=== PATIENT | male | born 1960 | race Caucasian/White ===

== ENCOUNTER 2016-07-18 10:21 | Emergency (ER) | payer OTHER ==
[2016-07-18 10:25] VITALS: BP 157/96
--- NOTE | 2016-07-18 11:03 | ED.ADGEN ---
Past History Past Medical History: High Cholesterol, Hypertension Past Surgical History: No Surgical History Smoking: Non-smoker Alcohol Use: Occasionally Drug Use: None Adult General Chief Complaint Chief Complaint fall, face pain HPI HPI Patient is a 56 year old male who presents with injuries from a fall. Pt had a mechanical trip and fall while at work. Occurred just prior to arrival, no LOC , takes no blood thinners. Starting to develop occipital headache, denies neck or back pain. abrasion to the left hand, laceration left face just distal to the nose. Review of Systems Review of Systems Constitutional: Denies fever or chills [] Eyes: Denies change in visual acuity, redness, or eye pain [] HENT: Denies nasal congestion or sore throat [] Respiratory: Denies cough or shortness of breath [] Cardiovascular: denies chest pain GI: Denies abdominal pain, nausea, vomiting, bloody stools or diarrhea [] : Denies dysuria or hematuria [] Musculoskeletal: Denies back pain or joint pain [] Integument: Denies rash Neurologic: reports headache, denies focal weakness or sensory changes [] Current Medications Current Medications Current Medications Medications (Trade) Dose Ordered Sig/Tayla Start Time Stop Time Status Last Admin Dose Admin Acetaminophen (Tylenol) 1,000 mg 1X ONCE 07/18/16 11:25 07/18/16 11:26 DC 07/18/16 11:09 1,000 MG Diphtheria/ Tetanus/Acell Pertussis (Boostrix) 0.5 ml ONCE ONCE 07/18/16 11:25 07/18/16 11:26 DC 07/18/16 11:09 0.5 ML Lidocaine/ Epinephrine (Xylocaine 1%-Epi 1:100,000) 20 ml 1X ONCE 07/18/16 11:25 07/18/16 11:26 DC Allergies Allergies Allergies Coded Allergies Type Severity Reaction Last Updated Verified No Known Drug Allergies 03/31/13 No Physical Exam Physical Exam Constitutional: Well developed, well nourished, no acute distress, non-toxic appearance. [] HENT: Normocephalic, 2 cm laceration to just above the lip/distal to the nose, moderate hemostasis, no mastoid tenderness, chin abrasion, no trismus, bilateral external ears normal, oropharynx moist, no oral exudates, nose normal. [] Eyes: PERRLA, EOMI, conjunctiva normal, no discharge. [] Neck: Normal range of motion, no tenderness, supple, no stridor. [] Cardiovascular:Heart rate regular rhythm, systolic heart murmur [] Lungs & Thorax: Bilateral breath sounds clear to auscultation , no wheeze or crackles Abdomen: soft, no tenderness, no masses Skin: Warm, dry, no erythema, no rash. [] Back: No midline stepoff or tenderness, no CVA tenderness. [] Extremities: No tenderness, no cyanosis, no clubbing, ROM intact, no edema. [] Neurologic: Alert and oriented X 3, normal motor function, normal sensory function, no focal deficits noted. [] Psychologic: Affect normal, judgement normal, mood normal. [] Current Patient Data Vital Signs Vital Signs Date Time Temp Pulse Resp B/P Pulse Ox O2 Delivery O2 Flow Rate FiO2 07/18/16 10:25 98.1 108 18 100 Room Air EKG EKG [] Radiology/Procedures Radiology/Procedures CT head and face: CT of the head without contrast, 07/18/2016: History: Fall, head injury the ventricles are within normal limits in size. There is no shift of the midline structures. There is no evidence of acute intracranial hemorrhage or mass effect. The bone windows show no evidence of a fracture. IMPRESSION: No acute intracranial abnormality is detected. CT of the facial bones without contrast, 07/19/2011: Noncontrast scans were obtained with multiplanar reconstructions produced. No acute fracture is identified. There is mucosal thickening in the maxillary sinuses, more so on the right, presumably on an inflammatory basis. The orbital contents are unremarkable. The patient is edentulous. IMPRESSION: No acute bony abnormality is detected. Indication: face laceration Procedure: The patient was placed in the appropriate position and anesthesia around the lidocaine with 1% epi . The area was then [facility]. The laceration was 3 simple interrrupted sutures using 6-0 prolene. Total repaired wound length: 2. cm. Other Items: none The patient tolerated the procedure well. Complications: [COMPLICATIONS]. Course & Med Decision Making Course & Med Decision Making Pertinent Labs and Imaging studies reviewed. (See chart for details) tylenol po and tdap given. CT head and face ordered Final Impression Final Impression facial laceration closed head injury[] Problems: Dragon Disclaimer Dragon Disclaimer This electronic medical record was generated, in whole or in part, using a voice recognition dictation system. SONYA HOLLINGSWORTH MD Jul 18, 2016 11:03
[2016-07-18] MEDS ORDERED: LIDOCAINE 1%/EPI 1:100,000 20 ML VIAL. IJ ONE (11:25)
[2016-07-18] MEDS ORDERED: ACETAMINOPHEN 500 MG TABLET PO ONE (11:25)
[2016-07-18] MEDS ORDERED: DIPHTH,PERTUSS(ACELL),TET TOX 0.5 ML DISP.SYRIN. VAX IM ONE (11:25)
--- NOTE | 2016-07-18 11:32 | RAD ---
CT of the head without contrast, 07/18/2016: History: Fall, head injury the ventricles are within normal limits in size. There is no shift of the midline structures. There is no evidence of acute intracranial hemorrhage or mass effect. The bone windows show no evidence of a fracture. IMPRESSION: No acute intracranial abnormality is detected. CT of the facial bones without contrast, 07/19/2011: Noncontrast scans were obtained with multiplanar reconstructions produced. No acute fracture is identified. There is mucosal thickening in the maxillary sinuses, more so on the right, presumably on an inflammatory basis. The orbital contents are unremarkable. The patient is edentulous. IMPRESSION: No acute bony abnormality is detected. PQRS Compliance Statement: One or more of the following individualized dose reduction techniques were utilized for this examination: 1. Automated exposure control 2. Adjustment of the mA and/or kV according to patient size 3. Use of iterative reconstruction technique
== END 2016-07-18 12:06 | disposition home or self-care (01) ==
LOC: ER 10:21
DX: S09.8XXA Other specified injuries of head, initial encounter (principal); S01.81XA Laceration without foreign body of other part of head, initial encounter; S60.512A Abrasion of left hand, initial encounter; I10 Essential (primary) hypertension; E78.00 Pure hypercholesterolemia, unspecified; W01.0XXA Fall on same level from slipping, tripping and stumbling without subsequent striking against object, initial encounter; Y93.89 Activity, other specified; Y99.8 Other external cause status; Y92.89 Other specified places as the place of occurrence of the external cause
CPT/HCPCS: 12011; 70450; 70486; 90471; 90715; 99284-25

== ENCOUNTER 2016-07-23 14:38 | Emergency (ER) | payer OTHER ==
[~2016-07-23] VITALS: Ht 175.3 cm; Wt 106.6 kg
[2016-07-23 14:55] VITALS: BP 143/90
--- NOTE | 2016-07-23 15:06 | ED.ADGEN ---
Past History Past Medical History: High Cholesterol, Hypertension Past Surgical History: No Surgical History Smoking: Non-smoker Alcohol Use: Occasionally Drug Use: None Adult General Chief Complaint Chief Complaint suture removal HPI HPI Patient is a 56 year old male who presents to suture removal. Laceration to face 5 days ago, no injuries. Healing well Review of Systems Review of Systems Constitutional: Denies fever or chills [] Allergies Allergies Allergies Coded Allergies Type Severity Reaction Last Updated Verified No Known Drug Allergies 03/31/13 No Physical Exam Physical Exam Constitutional: Well developed, well nourished, no acute distress, non-toxic appearance. [] Face: well healing laceration just distal to the left nose, no surrounding erythema, + scabs. EKG EKG [] Radiology/Procedures Radiology/Procedures [] Course & Med Decision Making Course & Med Decision Making Pertinent Labs and Imaging studies reviewed. (See chart for details) sutures removed by me. tolerated well. Care instructions given Final Impression Final Impression face laceration[] Problems: Dragon Disclaimer Dragon Disclaimer This electronic medical record was generated, in whole or in part, using a voice recognition dictation system. SONYA HOLLINGSWORTH MD Jul 23, 2016 15:06
== END 2016-07-23 15:20 | disposition home or self-care (01) ==
LOC: ER 14:38
DX: S01.81XD Laceration without foreign body of other part of head, subsequent encounter (principal); I10 Essential (primary) hypertension; E78.00 Pure hypercholesterolemia, unspecified; X58.XXXD Exposure to other specified factors, subsequent encounter; Y99.8 Other external cause status; Y92.89 Other specified places as the place of occurrence of the external cause
CPT/HCPCS: 99281

== ENCOUNTER → 2018-03-09 | Day surgery (SDC) | payer BC ==
[~2018-03-09] MED LIST: ALBUTEROL SULFATE 2.5 MG/3 ML NEBU. NEB PRN; AMLO10TA6 PO; ATROPINE 0.5 MG/5 ML DISP.SYRIN. IV PRN; IV RINGERS SOLUTION,LACTATED 1,000 ML IV SCH; LIDOCAINE 2% PF Vial for OR 5 ML VIAL. ONE; LISI-334 PO; NALOXONE 0.4 MG/ML VIAL. IV PRN; ONDANSETRON PF 4 MG/2 ML VIAL. IV PRN; PROPOFOL 40 ML IV ONE
[2018-03-09 10:27] VITALS: BP 138/98
== END | disposition home or self-care (01) ==
LOC: SURG 08:45
PROVIDERS: ATTEND Internal Medicine Gastroenterology
DX: Z12.11 Encounter for screening for malignant neoplasm of colon (principal); I10 Essential (primary) hypertension; Z98.890 Other specified postprocedural states; I35.2 Nonrheumatic aortic (valve) stenosis with insufficiency; Z79.899 Other long term (current) drug therapy
CPT/HCPCS: 45378; J2704; J2001

== ENCOUNTER → 2021-09-10 | Outpatient (CLI) | payer BC ==
[2018-03-09 10:27] VITALS: BP 138/98
[~2021-09-10] MED LIST changes: -ALBUTEROL SULFATE 2.5 MG/3 ML NEBU. NEB PRN; +AMLO-187 PO; -AMLO10TA6 PO; -ATROPINE 0.5 MG/5 ML DISP.SYRIN. IV PRN; -IV RINGERS SOLUTION,LACTATED 1,000 ML IV SCH; -LIDOCAINE 2% PF Vial for OR 5 ML VIAL. ONE; -LISI-334 PO; +LISI20TA18 PO; -NALOXONE 0.4 MG/ML VIAL. IV PRN; -ONDANSETRON PF 4 MG/2 ML VIAL. IV PRN; -PROPOFOL 40 ML IV ONE
== END ==
LOC: ECHO 14:17
PROVIDERS: ATTEND Internal Medicine Cardiovascular Disease
DX: I35.9 Nonrheumatic aortic valve disorder, unspecified (principal)
CPT/HCPCS: 93306